=== PATIENT | female | born 2000 | race Caucasian/White ===

== ENCOUNTER 2019-10-07 09:01 | Emergency (ER) | payer OTHER, SELFPAY ==
--- NOTE | ~2019-10-07 | XR_ITS ---
EXAMINATION: XR foot LT min 3V DATE: 10/07/2019 09:45 INDICATION: Patient with foot injury nine days ago and report with possible cuboid fracture on prior imaging with persistent foot pain and swelling TECHNIQUE: Dorsoplantar, lateral, and 2 oblique views of the left foot were obtained. COMPARISON: None. FINDINGS: There is lateral soft tissue swelling of the foot and ankle. Bone alignment is normal. No d efinite fracture is identified. There are also no definite changes of bony healing. IMPRESSION: 1. Soft tissue swelling without definite evidence of fracture or productive changes of bony healing. Consider follow-up with MRI if there is high clinical suspicion for fracture. Reviewed, dictated and finalized at location A. ROOM SUPERVISOR IMPRESSION: 1. Soft tissue swelling without definite evidence of fracture or productive kamille nges of bony healing. Consider follow-up with MRI if there is high clinical maggy picion for fracture.
--- NOTE | ~2019-10-07 | XR_ITS ---
EXAMINATION: XR ankle LT min 3V DATE: 10/07/2019 09:45 INDICATION: Left ankle pain TECHNIQUE: Anteroposterior, lateral, mortise, and additional oblique view of the ankle were obtained. COMPARISON: None. FINDINGS: There is no fracture, dislocation, or subluxation. The bones and joint spaces are normal. T here is mild lateral soft tissue swelling of the ankle. IMPRESSION: 1. Lateral ankle soft tissue swelling without acute osseous abnormality identified. Reviewed, dictated and finalized at location A. ER HELPER IMPRESSION: 1. Lateral ankle soft tissue swelling without acute osseous abnormality identif ied.
--- NOTE | 2019-10-07 09:05 | ED_ITS ---
I attest that this documentation has been prepared under the direction and in the presence of Marely Acosta MD. Natali Morales Scribe 10/07/19;09:05 HPI - Extremity Injury (Lower) General Chief Complaint: Extremity Injury, Lower Stated Complaint: left foot Source: patient and RN notes reviewed Mode of arrival: other Limitations: no limitations History of Present Illness MD complaint: other (left foot pain) Review of Systems Review of Systems: All systems reviewed & are unremarkable except as noted in HPI and below
[2019-10-07 09:14] VITALS: BP 153/84; PULSE 94; RESP 18; TEMP 36.6; O2SAT 99
--- NOTE | 2019-10-07 09:19 | ED.LOWEXIN ---
HPI - Extremity Injury (Lower) General Chief Complaint: Extremity Injury, Lower <Akbar Morelos PA-C - Last Filed: 10/07/19 09:59> Stated Complaint: left foot <Akbar Morelos PA-C - Last Filed: 10/07/19 09:59> Time Seen by Provider: 10/07/19 09:08 <Akbar Morelos PA-C - Last Filed: 10/07/19 09:59> Source: patient <Akbar Morelos PA-C - Last Filed: 10/07/19 09:59> Mode of arrival: ambulatory <Akbar Morelos PA-C - Last Filed: 10/07/19 09:59> Limitations: no limitations <Akbar Morelos PA-C - Last Filed: 10/07/19 09:59> History of Present Illness HPI Narrative: Patient is a 19-year-old female who presents to emergency department for evaluation of the left ankle foot pain after rolling the ankle over a week ago patient was seen had negative radiographs. Patient notes despite using her wheeled walker scooter device and Lamont wrap and elevation continues to have pain patient on arrival in no distress has been able to bear weight denies new injury or trauma. <Akbar Morelos PA-C - Last Filed: 10/07/19 09:59> Related Data Home Medications: Home Medications Medication Instructions Recorded Confirmed No Home Medications 10/07/19 10/07/19 <Akbar Morelos PA-C - Last Filed: 10/07/19 09:59> Allergies/Adverse Reactions: Allergies Allergy/AdvReac Type Severity Reaction Status Date / Time No Known Allergies Allergy Verified 10/07/19 09:11 <Akbar Morelos PA-C - Last Filed: 10/07/19 09:59> Review of Systems Review of Systems: Narrative: CONSTITUTIONAL: Denies fever, chills, or sweats. SKIN: Positive for bruising and swelling MUSCULOSKELETAL: Positive for ankle and foot pain NEUROLOGIC: Denies numbness, or weakness. <Akbar Morelos PA-C - Last Filed: 10/07/19 09:59> [facility] Social History Social History: Social History (Updated 10/07/19 @ 09:44 by Akbar Morelos PA-C) Smoking status: Never smoker Gender identity (if verbalized by the patient): Female <JAMES Avery Last Filed: 10/07/19 09:59> Exam Narrative: Exam Narrative: GENERAL: Well-appearing, well-nourished, and in no acute distress. HEAD: Normocephalic, atraumatic. EYES: PERRLA and EOMI. ENT: Nares clear, no rhinorrhea or epistaxis. Mucous membranes moist. EXTREMITIES: Bruising swelling and tenderness of the left ankle joint with tenderness into the lateral midfoot SKIN: Warm, dry, no rash. NEURO: No focal deficits. Alert and oriented x3. Neurovascularly intact PSYCH: Normal mood and affect. <Akbar Morelos PA-C - Last Filed: 10/07/19 09:59> Course Course Emergency Course: Patient in the room in no distress aware of case findings treatment plan and diagnosis agreeing to follow-up as directed <Akbar Morelos PA-C - Last Filed: 10/07/19 09:59> Vital Signs Vital signs: Vital Signs Temperature 97.8 F 10/07/19 09:14 Pulse Rate 94 10/07/19 09:14 Respiratory Rate 18 10/07/19 09:14 Blood Pressure 153/84 H 10/07/19 09:14 Pulse Oximetry 99 10/07/19 09:14 Temperature 97.8 F 10/07/19 09:14 Pulse Rate 94 10/07/19 09:14 Respiratory Rate 18 10/07/19 09:14 Blood Pressure 153/84 H 10/07/19 09:14 Pulse Oximetry 99 10/07/19 09:14 <JAMES Avery Last Filed: 10/07/19 09:59> Vital Signs Temperature 97.8 F 10/07/19 09:14 Pulse Rate 94 10/07/19 09:14 Respiratory Rate 18 10/07/19 09:14 Blood Pressure 153/84 H 10/07/19 09:14 Pulse Oximetry 99 10/07/19 09:14 Temperature 97.8 F 10/07/19 09:14 Pulse Rate 94 10/07/19 09:14 Respiratory Rate 18 10/07/19 09:14 Blood Pressure 153/84 H 10/07/19 09:14 Pulse Oximetry 99 10/07/19 09:14 <Marely Acosta MD - Last Filed: 10/07/19 16:05> MDM - Extremity Injury (Lower) MDM Narrative Medical decision making narrative: Patients injury or pain is consistent with musculoskeletal etiology. No signs of neurological or
== END 2019-10-07 10:45 | disposition home or self-care (01) ==
PROVIDERS: Emergency Provider General Practice
DX: S93.402A Sprain of unspecified ligament of left ankle, initial encounter (principal); S96.912A Strain of unspecified muscle and tendon at ankle and foot level, left foot, initial encounter; X50.9XXA Other and unspecified overexertion or strenuous movements or postures, initial encounter
CPT/HCPCS: 73610; 73630; 99283